=== PATIENT | female | born 1970 | race Caucasian/White ===

== ENCOUNTER 2021-05-14 05:18 | Emergency (ER) | payer BC, SELFPAY ==
--- NOTE | ~2021-05-14 | CT_ITS ---
EXAMINATION: CT abdomen pelvis wo con EXAM DATE: 05/14/2021 07:43 INDICATION: rt flank pain . TECHNIQUE: Spiral CT of the abdomen and pelvis was performed without contrast. Axial, coronal and sag ittal images were reviewed. The dose-length product (DLP) for this examination was 1455.00 mGy-cm. The exposure was tailored according to patient size (auto mA exposure control), and iterative reconst ruction (ASIR) was used as additional dose reduction technique. There is no prior study for comparis on. FINDINGS: There is no nephrolithiasis or hydronephrosis. The uterus is unremarkable. There is a lef t renal fluid density lesion measuring 4 cm, consistent with cyst. Small right renal lesion likely cy st. The bladder is unremarkable. The liver, spleen, adrenal glands and pancreas are unremarkable. T here are cholecystectomy clips. There is no retroperitoneal or pelvic lymphadenopathy. There is mi ld scattered arteriosclerotic disease. The appendix is normal. There is a 4 cm duodenal diverticulum. There is expected amount of colonic stool. No free intraperitoneal gas. The heart is normal in size. There are no pericardial or ple ural effusions. The lung bases are unremarkable. Mild lumbar levoscoliosis. There are no osteoblast ic or osteolytic lesions identified. IMPRESSION: No nephrolithiasis, hydronephrosis or acute intra-abdominal findings. Reviewed, dictated and finalized at location A. INSTALLER IMPRESSION: No nephrolithiasis, hydronephrosis or acute intra-abdominal finding s.
[2021-05-14 05:36] VITALS: BP 173/118; PULSE 95; RESP 18; TEMP 36.6; O2SAT 97
[2021-05-14 07:00] LABS: Basophils Absolute Auto 0.1 K/mm3 (0.0-0.1); Basophils Percent Auto 0.6 % (0.2-1.2); Eosinophils Absolute Auto 0.1 K/mm3 (0-0.3); Eosinophils Percent Auto 1.4 % (0-4.4); Hematocrit 44.6 % (37.0-47.0); Hemoglobin 14.9 g/dL (12.0-15.0); Immature Granulocyte Absolute 0.04 K/mm3 (0.00-0.031); Immature Granulocyte Percent A 0.4 % (0-0.5); Lymphocytes Absolute Auto 1.84 K/mm3 (0.9-3.2); Lymphocytes Percent Auto 19.4 % (18.3-44.2); Mean Corpuscular HGB Conc 33.4 g/dl (32-36); Mean Corpuscular Hemoglobin 29.3 pg (26-34); Mean Corpuscular Volume 87.6 fl (80-100); Mean Platelet Volume 9.2 fl (7.4-10.4); Monocytes Absolute Auto 0.7 K/mm3 (0.1-0.6); Monocytes Percent Auto 7.5 % (2.6-8.5); Neutrophils Absolute Auto 6.7 K/mm3 (1.3-6.7); Neutrophils Percent Auto 70.7 % (45.5-73.1); Platelet Count Result 412 k/mm3 (150-375); Red Blood Count 5.09 M/mm3 (4.2-5.4); Red Cell Distribution Width 12.3 % (11.5-14.5); White Blood Count 9.5 K/mm3 (4.5-10.0)
[2021-05-14 07:13] LABS: Add Urine Microscopic? YES; Appearance Urine Clear (Clear); Bilirubin Urine Negative (Negative); Blood Urine 1+ (Negative); Color Urine Yellow (Yellow); Glucose Urine UA Negative (Negative); Ketones Urine Negative (Negative); Leukocyte Esterase Ur Negative LEU/UL (Negative); Mucus Urine Rare /lpf; Nitrate Urine Negative (Negative); Protein Urine Negative (Negative); Specific Grav Ur 1.014 (1.001-1.035); Squamous Epithelial Cell Urine Many /hpf (Few); Urobilinogen Urine Negative mg/dL (<2.0); WBC Urine 0-3 /hpf
[2021-05-14 07:26] LABS: Alanine Aminotransferase 21 U/L (4-35); Albumin Level 4.4 g/dL (3.5-5.1); Alkaline Phosphatase 69 U/L (38-126); Anion Gap 10 mmol/L (8-16); Aspartate Amino Transferase 29 U/L (14-36); Bilirubin,Total 0.5 mg/dL (0.2-1.3); Blood Urea Nitrogen 14 mg/dL (7-17); Calcium 9.1 mg/dL (8.4-10.2); Carbon Dioxide 21 mmol/L (22-30); Chloride 104 mmol/L (98-107); Estimated CRCL calculation 133 ml/min; Estimated Glomerular Filt Rate > 60; Glucose 132 mg/dL (65-110); Lipase 180 U/L (23-300); Potassium 4.2 mmol/L (3.4-5.0); Sodium 135 mmol/L (137-145)
[2021-05-14 08:00] VITALS: BP 167/97; PULSE 84; RESP 19; O2SAT 99
[2021-05-14] MEDS: MORPHINE SULFATE (*CRX) 4 MG/ML INJ IV PUSH (08:24)
[2021-05-14] MEDS: ONDANSETRON INJ 4 MG/2 ML VIAL IV PUSH (08:24)
--- NOTE | 2021-05-14 09:32 | ED.BACK ---
HPI - Back Pain/Injury General Chief Complaint: Back Pain/Injury Stated Complaint: rt flank pain, covid exposure Time Seen by Provider: 05/14/21 07:05 Source: patient Mode of arrival: ambulatory Limitations: no limitations History of Present Illness HPI Narrative: 50-year-old with a history of hypertension, kidney stones here with complaints of right flank pain radiating into her right lower abdomen started about 2 days ago pain got worse this morning. She denies any shortness of breath or cough. She states that she is exposed to Covid. No history of fever or chills. Denies any urinary symptoms at this time. Patient also states that she has been taking Flomax from her previous admission MD elicited complaint: back pain Pertinent past history: kidney stones Onset (ago): day(s) (2) Timing: intermittent Severity: moderate Quality: aching Location: right flank Radiation: abdomen Exacerbating factors: none Relieving factors: none Associated symptoms: denies other symptoms Related Data Allergies Allergy/AdvReac Type Severity Reaction Status Date / Time NKDA Allergy Unknown Unknown Uncoded 05/14/21 06:14 Review of Systems Review of Systems: All systems reviewed & are unremarkable except as noted in HPI and below Constitutional: Constitutional: Reports no additional constitutional complaints Eyes: Eyes: Reports no additional eye complaints ENT: Reports system reviewed and no additional complaints, except as documented Cardiovascular: Cardiovascular: Reports no additional cardiovascular complaints Respiratory: Respiratory: Reports no additional respiratory complaints Gastrointestinal: Gastrointestinal: Reports as per HPI Musculoskeletal: Musculoskeletal: Reports no additional musculoskeletal complaints Integumentary/Breasts: Skin/Breast: Reports system reviewed and no additional complaints, except as docu Neurologic: Reports system reviewed and no additional complaints, except as documented Psychiatric: Psychiatric: Reports no additional psychiatric complaints Exam Narrative: GENERAL: Well-appearing, well-nourished, and in no acute distress. HEAD: Normocephalic, atraumatic. EYES: PERRLA and EOMI. NECK: Supple. CHEST: Clear to auscultation. No respiratory distress. HEART: Regular rate and rhythm. No murmur heard. Normal peripheral pulses. ABDOMEN: Soft, nontender, nondistended, normal active bowel sounds. EXTREMITIES: Normal range of motion. No edema. SKIN: Warm, dry, no rash. NEURO: No focal deficits. Alert and oriented x3. PSYCH: Normal mood and affect. Course Course Emergency Course: Patient was complaining of right lower abdominal pain I did give her IV morphine and Zofran with some fluids. She presently not having much pain informed her about her lab work, CT finding cause of her pain most likely musculoskeletal. Advised her to continue home medication. Take pain medication as prescribed Vital Signs Vital signs: Vital Signs Temperature 36.6 C 05/14/21 05:36 Pulse Rate 95 05/14/21 05:36 Respiratory Rate 18 05/14/21 05:36 Blood Pressure 173/118 H 05/14/21 05:36 Pulse Oximetry 97 05/14/21 05:36 Temperature 36.6 C 05/14/21 05:36 Pulse Rate 81 05/14/21 09:34 Respiratory Rate 20 05/14/21 09:34 Blood Pressure 136/74 05/14/21 09:34 Pulse Oximetry 97 05/14/21 09:34 MDM - Back Pain/Injury MDM Narrative Medical decision making narrative: With given history of right flank pain radiating into the right lower abdomen suspicious of ureteral stones. Less likely pyelonephritis or appendicitis. Will do routine lab work. Meanwhile give her IV morphine and Zofran. Lab Data Result diagrams: 05/14/21 06:45 05/14/21 06:45 Labs: Lab Results 05/14/21 05/14/21 05/14/21 Range/Units 06:34 06:45 06:45 WBC 9.5 (4.5-10.0) K/mm3 RBC 5.09 (4.2-5.4) M/mm3 Hgb 14.9 (12.0-15.0) g/dL Hct 44.6 (37.0-47.0) % MCV 87.6 (80-100) fl [facility]
[2021-05-14 09:34] VITALS: BP 136/74; PULSE 81; RESP 20; O2SAT 97
== END 2021-05-14 10:10 | disposition home or self-care (01) ==
PROVIDERS: Emergency Medicine; Emergency Provider Family Medicine
DX: R10.31 Right lower quadrant pain (principal); Z87.442 Personal history of urinary calculi
CPT/HCPCS: 36415; 74176; 80053; 81001; 81025; 83690; 85025; 96374; 96375; 99284; J2270; J2405

== ENCOUNTER 2023-10-06 13:50 | Outpatient (CLI) | payer OTHER, SELFPAY ==
--- NOTE | ~2023-10-06 | MM_ITS ---
EXAMINATION: MM screening lance BI w maribel HISTORY: Screening TECHNIQUE: Craniocaudal and mediolateral oblique 3-D tomosynthesis images were obtained and synthetic 2-D images were generated. CAD analysis was submitted and interpreted. COMPARISON: No prior mammogram is available for comparison at this institution. BREAST PARENCHYMAL COMPOSITION: Not dense: There are scattered areas of fibroglandular density. FINDINGS: There is focal asymmetry in the subareolar location the right breast on CC view. No mammogr aphic evidence for malignancy in the left breast. IMPRESSION: 1. Focal right breast asymmetry. 2. Additional mammographic views and possible breast ultrasound are recommended. BI-RADS Category 0: Incomplete: Needs additional imaging evaluation. Reviewed, dictated and finalized at location A. IMPRESSION: 1. Focal right breast asymmetry. 2. Additional mammographic views and possible breast ultrasound are recommended . BI-RADS Category 0: Incomplete: Needs additional imaging evaluation.
== END 2023-10-06 13:51 | disposition home or self-care (01) ==
PROVIDERS: Visit Provider Nurse Practitioner Obstetrics & Gynecology
DX: Z12.31 Encounter for screening mammogram for malignant neoplasm of breast (principal); N64.89 Other specified disorders of breast
CPT/HCPCS: 77063; 77067

== ENCOUNTER 2023-11-03 14:39 | Outpatient (CLI) | payer OTHER, SELFPAY ==
--- NOTE | ~2023-11-03 | CT_ITS ---
EXAMINATION:CT lung screening DATE: 11/03/2023 14:55 INDICATION: Personal history of nicotine dependence. TECHNIQUE: Computed tomography (CT) of the chest was performed without intravenous contrast. Automate d exposure control and iterative reconstruction technique were employed. The dose-length product (DLP ) was 222.00 mGy-cm. COMPARISON: CT abdomen and pelvis 05/14/2021 FINDINGS: There is mild emphysema. There is mild scarring at the lung apices. There is a 4 mm nodule in right upper lobe. No pleural effusion. There is a 3.4 cm nodule in right thyroid lobe. The heart s ize is normal. No pericardial effusion. There are changes of gastric sleeve procedure. There are rm ges of cholecystectomy. Partially visualized is a 2.1 cm cyst in left kidney. There is moderate thora cic spondylosis. IMPRESSION: 1. Lung-RADS category 2: Benign appearance or behavior. Continue annual screening with noncontrast lo w-dose chest CT in 12 months. 2. Right thyroid nodule. Consider thyroid ultrasound for risk stratification. Reviewed, dictated and finalized at location A. IMPRESSION: 1. Lung-RADS category 2: Benign appearance or behavior. Continue annual screeni ng with noncontrast low-dose chest CT in 12 months. 2. Right thyroid nodule. Consider thyroid ultrasound for risk stratification.
== END 2023-11-03 14:40 ==
LOC: MICIMG 14:40
PROVIDERS: PCP Nurse Practitioner; Visit Provider Nurse Practitioner
DX: Z12.2 Encounter for screening for malignant neoplasm of respiratory organs (principal); Z87.891 Personal history of nicotine dependence
CPT/HCPCS: 71271

== ENCOUNTER 2024-12-27 14:56 | Outpatient (CLI) | payer OTHER, SELFPAY ==
--- NOTE | ~2024-12-27 | CT_ITS ---
CT Scan of the Chest without Contrast: Clinical Indication: Lung cancer screening, nicotine dependence Technique: Contiguous sections were acquired throughout the chest without intravenous contrast. Dose reduction technique was used on this scan by utilizing automated exposure control and iterative recon struction technique. The dose-length product (DLP) was 75.00 mGy-cm. COMPARISON: 11/03/2023 Findings: Stable enlarged right thyroid lobe. There is no evidence of any significant mediastinal, hilar or axillary lymphadenopathy. The mediastin al soft tissues appear normal. There is no evidence of pleural or pericardial effusion. Stable 4 mm right upper lobe pulmonary nodule (axial image 52). Images through the upper abdomen reveal no abnormalities. Impression: Lung RADS 2: Benign appearance. 12 month follow-up screening CT advised. Reviewed, dictated and finalized at [facility]. Impression: Lung RADS 2: Benign appearance. 12 month follow-up screening CT advised.
--- NOTE | ~2024-12-27 | MM_ITS ---
EXAMINATION: MM screening lance BI w maribel HISTORY: Screening TECHNIQUE: Craniocaudal and mediolateral oblique 3-D tomosynthesis images were obtained and synthetic 2-D images were generated. CAD analysis was submitted and interpreted. COMPARISON: Comparison to multiple prior studies sequentially, with oldest reviewed study dated 06/06. BREAST PARENCHYMAL COMPOSITION: Dense: The breasts are heterogeneously dense, which may obscure small masses FINDINGS: There is no evidence of suspicious mass, calcification, or architectural distortion to sugg est malignancy in either breast. There has been no suspicious interval change. IMPRESSION: 1. No mammographic evidence of malignancy. 2. Recommend routine screening mammography in one year. BI-RADS Category 1: Negative Reviewed, dictated and finalized at location A.
--- OUTSIDE RECORDS SUMMARY | 2024-12-27 15:00 | XMS_ITS | Encounter Summary ---
Author Organization [facility] Address [address] [place] [id number] Care Team Providers Care Machinist Mate Name Role Phone Kristen Young PUBLIC ADDRESS SYSTEM INSTALLER Primary Care Provider Doreen Faith PUBLIC ADDRESS SYSTEM INSTALLER Primary Care Provider [phone] Encounter Details Date Type Department Care Team (Late st Contact Info) Description 08/13/2022 BeInSync Message Enc [facility] Medical Group Family Medicine [address] [address] Kristen Young NP Telehealth today Social History Tobacco Use Types Packs/Day Years Used Date Smoking Tobacco: Former Cigarettes 1 28 0 05/16/1988 - 05/16/2016 Smokeless Tobacco: Never Alcohol Use Standard Drinks/Week Comments Never 0 (1 standard drink = 0.6 oz pur e alcohol) AUDIT-C Answer Date Recorded Q1: How often do you have a drink containing alc ohol? Never 03/05/2020 Average Number of Drinks Not on file 020 Frequency of Binge Drinking Not on file 02/14 PHQ-2 Answer Date Recorded PHQ-2 Score - If the patient scores above 3, please move on to questions 3-9 0 03/23/2022 Comments No Sex and Gender Information Value Date Recorded Sex Assigned at Female 06/14/2024 12:43 PM EDUCATION REP Legal Sex Female 7:55 PM CDT Gender Identity Female 06/14/2024 12:43 PM EDUCATION REP Sexual Orientation Straight 06/14/2024 12 :43 PM EDUCATION REP COVID-19 Exposure Response Date Recorded In the last 10 days, have yo u been in contact with someone who was confirmed or suspected to have Coronavirus/COVID-19? No / Unsure 07/16/2022 5:24 AM EDUCATION REP documented as of this encounter Plan of Treatment Upcoming Encounters Date Type Department Care Team (Late st Contact Info) Description 01/18/2025 9:40 AM CDT Office Visit [facility] Medical Group Multispecialty Care - [place] [address] [place] [address] Doreen Chapman, PUBLIC ADDRESS SYSTEM INSTALLER [address] [place] [address] documented as of this encounter Visit Diagnoses Not on filedocumented in this encounter Additional Health Concerns Assessment Noted Time PHQ-9 Depression Total Score: 0 03/23/20 8:00 AM EDUCATION REP documented as of this encounter Care Teams Machinist Mate Relationship Specialty Start Date End Date Kristen Young, PUBLIC ADDRESS SYSTEM INSTALLER PCP - General NURSE PRACTITIONER 03/18/22 10/12/23 Doreen Chapman, PUBLIC ADDRESS SYSTEM INSTALLER [address] [place] [address] PCP - General NURSE PRACTITIONER 10/13/23 documented as of this encounter
--- OUTSIDE RECORDS SUMMARY | 2024-12-27 15:00 | XMS_ITS | Encounter Summary ---
Author Organization [facility] Address [address] [place] [address] Care Team Providers Care Freight Flagman Name Role Phone Kristen Young RESEARCH CONSULTANT Primary Care Provider Doreen Faith RESEARCH CONSULTANT Primary Care Provider [phone] Encounter Details Date Type Department Care Team (Late st Contact Info) Description 09/30/2022 RazorGator Message Enc [facility] Medical Group Family Medicine [address] [address] [facility] Provider Dermatology Referral Social History Tobacco Use Types Packs/Day Years [...] Sex Assigned at Female 06/14/2024 12:43 PM ROUGHER OPERATOR Legal Sex Female 7:55 PM CDT Gender Identity Female 06/14/2024 12:43 PM ROUGHER OPERATOR Sexual Orientation Straight 06/14/2024 12 :43 PM ROUGHER OPERATOR documented as of this encounter Progress Notes * Liam Del Valle MA - 10/05/2022 3:18 PM CDT Referrals were entered today and sent to Kristen for signing. documented in this encounter Plan of Treatment Upcoming Encounters Date Type Department Care Team (Late st Contact Info) Description 01/18/2025 9:40 AM CDT Office Visit [facility] Medical Group Multispecialty Care - [place] [address] [place] [address] Doreen Chapman, ARIELLE [address] [place] [address] documented as of this encounter Visit Diagnoses Not on filedocumented in this encounter Additional Health Concerns Assessment Noted Time PHQ-9 Depression Total Score: 0 03/23/20 22 8:00 AM ROUGHER OPERATOR documented as of this encounter Care Teams Freight Flagman Relationship Specialty Start Date End Date Kristen Young RESEARCH CONSULTANT PCP - General NURSE PRACTITIONER 03/18/22 10/12/23 Doreen Chapman NP [address] [place] [address] PCP - General NURSE PRACTITIONER 10/13/23 documented as of this encounter
--- OUTSIDE RECORDS SUMMARY | 2024-12-27 15:00 | XMS_ITS | Encounter Summary ---
Author Organization [facility] Address [address] [place] [address] Care Team Providers Care Drug Abuse Social Worker Name Role Phone Kristen Young METAL BUILDINGS ASSEMBLER Primary Care Provider Doreen Faith METAL BUILDINGS ASSEMBLER Primary Care Provider [phone] Reason for Referral * Consultation/Treatment (Routine) - Closed Specialty Diagnoses / Procedures Referred By Gerald medina Referred To Contact GENERAL SURGERY Diagnoses Obesity Encounter for diagnostic endoscopy Procedures OFFICE/OUTPT VISIT,NEW,LEVL III OFFICE/OUTPT VISIT,NEW,LEVL IV OFFICE/OUTPT VISIT,NEW,LEVL V OFFICE/OUTPT VISIT,EST,LEVL III OFFICE/OUTPT VISIT,EST,LEVL IV OFFICE/OUTPT VISIT,EST,LEVL V Kristen Young NP Referral ID Status Reason Start Date Expiration Date Visits Re quested Visits Authorized [id number] Closed 06/18/2022 06/18/2023 4 4 Scheduling Instructions Please then send to Dr Anderson office. [facility] [address] [place] [address] Pt is having an endoscopy on 06/28/2022 ATING SYSTEM DESIGNER * Surgical (Routine) - Closed Specialty Diagnoses / Procedures Referred By Gerald medina Referred To Contact Bariatrics Diagnoses Obesity Procedures OFFICE/OUTPT VISIT,NEW,LEVL III OFFICE/OUTPT VISIT,NEW,LEVL IV OFFICE/OUTPT VISIT,NEW,LEVL V OFFICE/OUTPT VISIT,EST,LEVL III OFFICE/OUTPT VISIT,EST,LEVL IV OFFICE/OUTPT VISIT,EST,LEVL V Kristen Young NP Referral ID Status Reason Start Date Expiration Date V isits Requested Visits Authorized [id number] Closed Specialty Services 05/29/2022 11/25/2022 4 4 Scheduling Instructions I am requesting a referral to: Vinh Anderson [facility] [address] [place] [phone] to discuss bariatric surgery ATING SYSTEM DESIGNER Reason for Visit * Reason Onset Date Comments Referral 05/26/2022 Encounter Details Date Type Department Care Team (Late st Contact Info) Description 05/26/2022 Toobla Message Enc [facility] Medical Group Family Medicine - [address] [address] Kristen Young NP referral to bariatric doctor for appointment on 06.03.22 Social History Tobacco Use Types Packs/Day Years Used Date Smoking Tobacco: Former Cigarettes Q uit: 05/16/2016 Smokeless Tobacco: Never Alcohol Use Standard [...] Sex Assigned at Female 06/14/2024 12:43 PM OPERATING SYSTEM DESIGNER Legal Sex Female 7:55 PM CDT Gender Identity Female 06/14/2024 12:43 PM OPERATING SYSTEM DESIGNER Sexual Orientation Straight 06/14/2024 12 :43 PM OPERATING SYSTEM DESIGNER documented as of this encounter Progress Notes * Kristen Young NP - 06/07/2022 8:56 AM CST Yes please ATING SYSTEM DESIGNER * David Ritter RN - 06/07/2022 7:45 AM CST Okay for referral? Thanks ATING SYSTEM DESIGNER * Liam Del Valle MA - 05/27/2022 1:50 PM CST Referral for bariatric surgery referral entered. ATING SYSTEM DESIGNER documented in this encounter Plan of Treatment Upcoming Encounters Date Type Department Care Team (Late st Contact Info) Description 01/18/2025 9:40 AM CDT Office Visit [facility] Medical Group Multispecialty Care - [place] [address] [place], [place] [id number] Doreen Chapman NP [address] [place], [place] [id number] Scheduled Referrals Name Type Priority Associated Diagnoses Orde r Schedule Ambulatory Referral to Bariatric Surgery Referral Routine Obesity Ordered: 05/27/2022 Ambulatory referral to General Surgery (OTHER) Referral Routine Obesity Encounter for diagnostic endoscopy Ordered: 06/07/2022 documented as of this encounter Visit Diagnoses Diagnosis Obesity- Primary Obesity, unspecified Class 2 obesity due to excess calories without serious comorbidity with body mass index (BMI) of 39.0 to 39.9 in adult Encounter for diagnostic endoscopy Other specified pre-operative examination documented in this encounter Additional Health Concerns Assessment Noted Time PHQ-9 Depression Total Score: 0 03/23/20 8:00 AM OPERATING SYSTEM DESIGNER documented as of this encounter Care Teams Drug Abuse Social Worker Relationship Specialty Start Date End Date Kristen Young NP PCP - General NURSE PRACTITIONER 03/18/22 10/12/23 Doreen Chapman NP [address] [place], [place] [id number] PCP - General NURSE PRACTITIONER 10/13/23 documented as of this encounter
--- OUTSIDE RECORDS SUMMARY | 2024-12-27 15:00 | XMS_ITS | Clinical Summary ---
Author Organization [facility] Address [address] [place] [address] Care Team Providers Care Riveting Machine Operator Tape Control Name Role Phone AdelaDoreen WHEEL ROLLER Primary Care Provider Allergies No known active allergies Medications sotalol (BETAPACE) 80 MG tablet Take 1 tablet (80 mg total) by mouth 2 (two) times daily. Active Multiple Vitamins-Minerals (BARIATRIC MULTIVITAMINS/IRO N OR) Active calcium carbonate 1250 (500 Ca) MG chewable tablet Chew 1 tablet (1,250 mg total) by mouth daily. Active ondansetron (ZOFRAN-ODT) 4 MG disintegrating tabletIndications :Nausea Take 1 tablet (4 mg total) by mouth every 6 (six) hours as needed for Nausea. 30 tablet 2 025 Active pantoprazole EC (PROTONIX) 40 MG tabletIndications :Gastro-esophagea l reflux disease without esophagitis Take 1 tablet (40 mg total) by mouth daily. 30 tablet 025 Active amLODIPine (NORVASC) 10 MG tabletIndications :Essential hypertension Take 1 tablet (10 mg total) by mouth daily. 90 tablet 3 025 Active docusate sodium (COLACE) 100 MG capsuleIndication s:Other hemorrhoids,Other constipation Take 1 capsule (100 mg total) by mouth 2 (two) times daily. For constipation 025 Active ELIQUIS 5 MG tabletIndications :Chronic atrial fibrillation (CMS/HCC HHS/HCC) Take 1 tablet (5 mg total) by mouth 2 (two) times daily. 60 tablet 1 Active tirzepatide (ZEPBOUND) 12.5 MG/0.5ML injectionIndicati ons:Weight Loss Inject 12.5 mg into the skin once a week. Indications: Weight Loss 2 mL 2 025 Active tirzepatide (ZEPBOUND) 10 MG/0.5ML injectionIndicati ons:Weight Loss Inject 10 mg into the skin once a week. Indications: Weight Loss 2 mL 2 025 2024 Discontinued Active Problems Problem Noted Date Diagnosed Date Right thyroid nodule 01/12/2024 Other hemorrhoids 10/14/2023 Chronic atrial fibrillation ([facility]) ADHD (attention deficit hype ractivity disorder), combined type 07/14/2022 Abnormal EKG 07/09/2022 Gastro-esophageal reflux disease without esophag itis 07/09/2022 Personal history of nicotine dependence 07/09/19 23 Vitamin D deficiency 07/09/2022 Class 1 obesity without seri ous comorbidity with body mass index (BMI) of 32.0 to 32.9 in adult, unspecified obesity type 07/09/2022 Abnormal results of thyroid function studies 12/2022 Prediabetes 06/23/2022 Anxiety 06/05/2020 Essential hypertension 04/03/2020 Resolved Problems Problem Noted Date Diagnosed Date Resolved Date Encounter for screening for cardiovascular disorders 07/09/2022 07/19/2022 Other forms of dyspnea 06/23/202210/13 Encounters Date Type Department Care Team Description 12/07/2024 Telephone [facility] [place] [address] [facility] [address] [place] [address] Doreen Chapman, WHEEL ROLLER Referral 12/06/2024 [facility] [place] [address] [place] [address] Doreen Chapman NP Zep increase 11/21/2024 MyChart Message [facility] Multispecialty [place] [address] [address] [facility] [address] [place] [address] Doreen Chapman, WHEEL ROLLER Bumps 11/02/2024 Results Follow-Up [place] [address] [address] [facility] [address] [place] [address] Doreen Chapman, WHEEL ROLLER COLOGUARD (EXACT SCIENCE) 10/22/2024 Orders Only [place] [address] [address] [place] [address] Doreen Chapman, WHEEL ROLLER 10/15/2024 Telephone [place] [address] [address] [place] [address] Doreen Chapman, WHEEL ROLLER Record Request 10/12/2024 8:20 AM CDT Office Visit [place] [address] [address] [place] [address] Doreen Chapman, WHEEL ROLLER Weight Check 10/12/2024 MyChart Message Enc [place] [address] [address] [address] [address] [place] [address] Doreen Chapman, WHEEL ROLLER Hormone Testing 10/12/2024 Travel 09/28/2024 Scan [facility] Scanned, [facility] (SCAN) from Last 3 Months Immunizations Immunization Administration Dates Next Due Fluarix 03/16/2019 Fluzone 6 Months+ Quad (0.5 mL Prefilled Syringe) 04/03/2020 Influenza Adult (Generic) 02/12/2022,03/20/2021, 03/16/2019 MODERNA COVID-19 (12+) MRNA, LNP-S, PF, 100 MCG/ 0.5 ML DOSE 05/14/2020 Shingrix 10/12/2024,08/11/2024 Tdap (Adacel) 10/14/2023 Tdap (Generic) 08/11/2024 Family History Medical History Relation Comments Diabetes Brother 1 Heart Disease Brother 1 pacemaker Hypertension Brother 1 CHF Father COPD Father Cancer Father Hairy cell [facility] Heart Disease Father Cancer Mother Mantle cell lymp [place] Relation Status Comments Brother 1 Alive Brother 2 Alive Brother 3 Alive Daughter Alive Father Mother Son Alive Social History Tobacco Use Types Packs/Day Years Used Date Smoking Tobacco: Former Cigarettes 1 28 0 05/16/1988 - 05/16/2016 Smokeless Tobacco: Never Tobacco Cessation:Counseling Given: No Alcohol Use Standard Drinks/Week Comments Not Currently 1.7 (1 standard drink = 0.6 oz p ure alcohol) AUDIT-C Answer Date Recorded Q1: How [...] Sex Assigned at Female 06/14/2024 12:43 PM SOCIAL MEDIA SR STRATEGY MANAGER Legal Sex Female 7:55 PM CDT Gender Identity Female 06/14/2024 12:43 PM SOCIAL MEDIA SR STRATEGY MANAGER Sexual Orientation Straight 06/14/2024 12 :43 PM SOCIAL MEDIA SR STRATEGY MANAGER Last Filed Vital Signs Vital Sign Reading Time Taken Comments Blood Pressure 138/84 10/12/2024 8:21 AM CDT Pulse 82 10/12/2024 8:21 AM CDT Temperature 36.7 C (98.1 F) 10/12/2024 8:21 AM CDT Respiratory Rate 18 10/12/2024 8:21 AM CDT Oxygen Saturation 98% 10/12/2024 8:21 AM CDT Inhaled Oxygen Concentration - - Weight 104.9 kg (231 lb 3.2 oz) 10/12/2024 8:21 AM CDT Height 175.3 cm (5' 9) 10/12/2024 8:21 AM CDT Body Mass Index 34.14 10/12/2024 8:21 AM CDT Plan of Treatment Upcoming Encounters Date Type Department Care Team (Late st Contact Info) Description 01/18/2025 9:40 AM CDT Office Visit [facility] Multis[facility]ialty Care - [address] [place] [address] Doreen Chapman, WHEEL ROLLER [address] [facility] [address] [place] [address] Health Maintenance Due Date Last Done Comments Hepatitis B Vaccines (1 of 3 - 19+ 3-dose series) 1989 Lung Cancer Screening 2020 Pneumococcal Vaccine: 50+ Years (1 of 1 - PCV) 2020 COVID-19 Vaccine ( - season) 2024 02/12/2022, 03/20/2021, 06/12/2020, Additional history exists PHQ-2 (Physician [place]) 05/16/2024 Annual Physical 10/13/2024 10/14/2023, 09/08/2021 Mammogram Screening 10/05/2025 10/06/2023, 03/10/2020, 03/10/2020, Additional history exists Cervical Cancer Screening Pap Smear (Age 30 to 64) Every 3 Years 09/15/2026 09/16/2023, 09/17/2021, 09/20/2017 Colorectal Cancer Screening FIT-DNA (3 Years) 10/30/2027 10/29/2024 Cervical Cancer Screening Pap with HPV Testing (Age 30 to 64) Every 5 Years 09/15/2028 09/16/2023, 09/18/2021 Cervical Cancer Screening with HPV 09/15/2028 DTaP, Tdap and Td Vaccines (3 - Td or Tdap) 08/11/2034 08/11/2024, 10/14/2023 Hepatitis C Completed 10/14/2023 Zoster Vaccines Completed 10/12/2024, 08/11/2024 Meningococcal B Vaccine Aged Out No l onger eligible based on patient's age to complete this topic Meningococcal Vaccine Aged Out No shaylee kervin eligible based on patient's age to complete this topic RSV Immunizations Under 20 Months Aged Out No longer eligible based on patient's age to complete this topic Medical Devices Implanted Type Area Price Clerk Device Identifier Shelf Expiration Date Model / Serial / Lot 2.0 X 12 Snap Off Screw Implanted:Qty: 1 on 07/16/2022 by Candelario Sosa DPM at [facility] Right: [employer] [id number] / / Med Phalinx Implant Implanted:Qty: 1 on 07/16/2022 by Candelario Sosa DPM at [facility] Right: Ruth [employer] [id number] / / 1.1 Mm Kwire Implanted:Qty: 1 on 07/16/2022 by Candelario Sosa DPM at [facility] Right: Ruth [employer] [id number] / / Procedures Procedure Name Priority Date/Time Associated Diagnosis Comments COLOGUARD (EXACT SCIENCE) Routine 10/29/2024 8:16 AM CDT Screening for colon cancer OUTSIDE LAB (SCAN ORDER) 09/28/2024 HEPATITIS C ANTIBODY Routine 10/14/2023 9:46 AM CDT Need for hepatitis C screening test MAMMOGRAM GENERIC (SCAN ORDER) 10/06/2023 OUTSIDE CYTOPATH CERV/VAG INTERPRET (PAP) 09/16/2023 OUTSIDE CYTOPATH CERV/VAG INTERPRET (PAP) (SCAN ORDER) 09/20/2017 from Last 3 Months or Most Recently Relevant to Health Maintenance Results * COLOGUARD (EXACT SCIENCE) (10/29/2024 8:16 AM CDT) COLOGUARD RESULT Negative Negative [employer] (CLIA #:[id number]) Comment: The Cologuard (TM) test was performed on this specimen. NEGATIVE TEST RESULT. A negative Cologuard result indicates a low likelihood that a colorectal cancer (CRC) or advanced adenoma (adenomatous polyps with more advanced pre-malignant features) is present. The chance that a person with a negative Cologuard test has a colorectal cancer is less than 1 in 1500 (negative predictive value >99.9%) or has an advanced adenoma is less than 5.3% (negative predictive value 94.7%). These data are based on a prospective cross-sectional study of 10,000 individuals at average risk for colorectal cancer who were screened with both Cologuard and colonoscopy. (Gogo Uribe al, N Engl J Med 2014;370(14):1286- 1297) The normal value (reference range) for this assay is negative. COLOGUARD RE-SCREENING RECOMMENDATION: Periodic colorectal cancer screening is an important part of preventive healthcare for asymptomatic individuals at average risk for colorectal cancer. Following a negative Cologuard result, the [place] Cancer Society and U.S. Multi-Society Task Force screening guidelines recommend a Cologuard re-screening interval of 3 years. References: [place] [employer] Guideline for Colorectal Cancer Screening: https://www.cancer.org/cancer/cbvso-zakliv-zhhewi/kdwafxwnh-iwmgaydqq-utvfsgn/ac s-rec ommendations.html.; Brayan DK, Magalis CR, Mio JeffK, Colorectal Cancer Screening: Recommendations for Physicians and Patients from the U.S. Multi-Society Task Force on Colorectal Cancer Screening , Am J Gastroenterology 2017; 112:1086-8199. TEST DESCRIPTION: Composite algorithmic analysis of stool DNA-biomarkers with hemoglobin immunoassay. Quantitative values of individual biomarkers are not reportable and are not associated with individual biomarker result reference ranges. Cologuard is intended for colorectal cancer screening of adults of either sex, 45 years or older, who are at average-risk for colorectal cancer (CRC). Cologuard has been approved for use by the U.S. FDA. The performance of Cologuard was established in a cross sectional study of average-risk adults aged 50-84. Cologuard performance in patients ages 45 to 49 years was estimated by sub-group analysis of near-age groups. Colonoscopies performed for a positive result may find as the most clinically significant lesion: colorectal cancer [4.0%], advanced adenoma (including sessile serrated polyps greater than or equal to 1cm diameter) [20%] or non- advanced adenoma [31%]; or no colorectal neoplasia [45%]. These estimates are derived from a prospective cross-sectional screening study of 10,000 individuals at average risk for colorectal cancer who were screened with both Cologuard and colonoscopy. (Gogo Uribe al, N Engl J Med 2014;370(14):9414-3800.) Cologuard may produce a false negative or false positive result (no colorectal cancer or precancerous polyp present at colonoscopy follow up). A negative Cologuard test result does not guarantee the absence of CRC or advanced adenoma (pre-cancer). The current Cologuard screening interval is every 3 years. ([place] [employer] Society and U.S. Multi-Society Task Force). Cologuard performance data in a 10,000 patient pivotal study using colonoscopy as the reference method can be accessed at the following location: www.Spockly.eCareer/results. Additional description of the Cologuard test process, warnings and precautions can be found at www.colMagpowerrd.com. STOOL STOOL SPECIMEN / Unknown 10/29/2024 8:16 AM CDT 10/30/2024 9:44 AM CDT us Doreen Chapman NP BODY FLUIDS AND STOOLS ORDE RABLES Final Result Performing Organization Address [facility] Co de Phone Number [employer] [address] [place] [address], [employer] (CLIA #:[id number]) [address] [place] [address] * OUTSIDE LAB (SCAN ORDER) (09/28/2024) 09/28/2024 us [facility] Scanned SCANNING Final Resu lt * HEPATITIS C ANTIBODY (10/14/2023 9:46 AM CDT) HEPATITIS C AB NON-REACTI VE NON-REACT EDWIN 10/14/2023 7:40 PM CDT [facility] Comment: ANTIBODIES TO HCV NOT DETECTED. DOES NOT EXCLUDE THE POSSIBILITY OF EXPOSURE TO HCV. 10/14/2023 9:46 AM CDT us Doreen Chapman NP LABORATORY Final Resul t Performing Organization Address [facility] Co de Phone Number [facility] [address] [place] [address], [id number] * MAMMOGRAM GENERIC (SCAN ORDER) (10/06/2023) Anatomical Region Laterality Modality Other 10/06/2023 us [facility] Scanned SCANNING Final Resu lt * PAP SMEAR WITH HPV (09/16/2023) 09/16/2023 us [facility] Scanned SCANNING Final Resu lt * OUTSIDE CYTOPATH CERV/VAG INTERPRET (PAP) (09/20/2017) 09/20/2017 Narrative 09/20/2017 Ordered by an unspecified provider. us Documents Scanned SCANNING Final Result from Last 3 Months or Most Recently Relevant to Health Maintenance Insurance Advance Directives * Full Code (Latest Code Status on File) Date Activated Date Inactivated Comments 07/16/2022 11:12 AM 07/16/2022 1:28 PM Care Teams Riveting Machine Operator Tape Control Relationship Specialty Start Date End Date Doreen Chapman, WHEEL ROLLER [address] [facility] [address] [place] [address] PCP - General NURSE PRACTITIONER 10/13/23
--- OUTSIDE RECORDS SUMMARY | 2024-12-27 15:00 | XMS_ITS | Encounter Summary ---
Author Organization [facility] Address [address] [place] [id number] Care Team Providers Care Wrister Name Role Phone Kristen Young SENIOR CLINICAL DATA ANALYST Primary Care Provider Doreen Fiath SENIOR CLINICAL DATA ANALYST Primary Care Provider [phone] Encounter Details Date Type Department Care Team (Late st Contact Info) Description 06/24/2022 [place] [facility] Message Enc [facility] [address] [address] Kristen Young NP Bariatric Sleeve - Release for surgery Social History Tobacco Use Types Packs/Day Years [...] Sex Assigned at Female 06/14/2024 12:43 PM SAMPLE GRADER Legal Sex Female 7:55 PM CDT Gender Identity Female 06/14/2024 12:43 PM SAMPLE GRADER Sexual Orientation Straight 06/14/2024 12 :43 PM SAMPLE GRADER COVID-19 Exposure Response Date Recorded In the last 10 days, have yonatan u been in contact with someone who was confirmed or suspected to have Coronavirus/COVID-19? No / Unsure 06/04/2022 11:37 AM SAMPLE GRADER documented as of this encounter Progress Notes * David Ritter RN - 06/28/2022 8:19 AM CST FYI LE GRADER * David Ritter RN - 06/24/2022 7:58 AM CST Please see note. Thanks LE GRADER documented in this encounter Plan of Treatment Upcoming Encounters Date Type Department Care Team (Late st Contact Info) Description 01/18/2025 9:40 AM CDT Office Visit [facility] Multispecialty Care - [place] [address] [place], [place] [id number] Doreen Chapman NP [address] [place] [address] documented as of this encounter Visit Diagnoses Not on filedocumented in this encounter Additional Health Concerns Assessment Noted Time PHQ-9 Depression Total Score: 0 03/23/20 22 8:00 AM SAMPLE GRADER documented as of this encounter Care Teams Wrister Relationship Specialty Start Date End Date Kristen Young NP PCP - General NURSE PRACTITIONER 03/18/22 10/12/23 Doreen Chapman NP [address] [place], [place] [id number] PCP - General NURSE PRACTITIONER 10/13/23 documented as of this encounter
--- OUTSIDE RECORDS SUMMARY | 2024-12-27 15:00 | XMS_ITS | Clinical Summary ---
Author Organization [facility] Address [address] [place] [address] Care Team Providers Care Dinking Machine Operator Name Role Phone Prieto Salomon MD Unavailable [phone] Kristen Young NP Unavailable [phone] Doreen Chapman NP Primary Care Provider [phone] Allergies No known active allergies Medications amLODIPine (NORVASC) 10 mg tablet Take 1 tablet (10 mg total) by mouth daily 3 Active ondansetron ODT (ZOFRAN-ODT) 4 mg disintegrating tablet Take 1 tablet (4 mg total) by mouth as needed [address] (PROTONIX) 40 mg EC tablet Take 1 tablet (40 mg total) by mouth daily 3 Active tirzepatide, weight loss, (ZEPBOUND) 7.5 mg/0.5 mL pen injector 5 Active sotaloL (BETAPACE) 80 mg tablet Take 1 tablet (80 mg total) by mouth 2 (two) times a day Active docusate sodium (DOK) 100 mg tabletIndications: constipation Take 1 tablet (100 mg total) by mouth 2 (two) times a day Active multivitamin tabletIndications: Vitamin Deficiency Prevention Take 1 tablet by mouth Active magnesium oxide (MAG-OX) 400 mg (241.3 mg elemental magnesium) tabletIndications: hypomagnesemia Take 1 tablet (400 mg total) by mouth daily Active Eliquis 5 mg tablet Take 1 tablet (5 mg total) by mouth 2 (two) times a day 180 tablet 2 Active Eliquis 5 mg tablet Take 1 tablet (5 mg total) by mouth 2 (two) times a day 3 12/05/19 Discontinu ed(Reorder ) Eliquis 5 mg tablet Take 1 tablet (5 mg total) by mouth 2 (two) times a day 60 tablet 3 5 12/08/19 Discontinu ed(Reorder ) Active Problems Problem Noted Date Diagnosed Date Paroxysmal atrial fibrillation 11/01/2024 Subclinical hyperthyroidism 09/14/2024 Multinodular goiter 09/14/2024 Resolved Problems Problem Noted Date Diagnosed Date Resolved Date A-fib 09/06/2022 11/01/2024 Encounters Date Type Department Care Team Description 12/12/2024 Results Follow-Up [facility] [address] [address] Lona Silva PA T3, free, T4, free, TSH 11/01/2024 11:30 AM CDT Office Visit [facility] Cardiology at [address] [phone] Ralph Vidales MD Paroxysmal atrial fibrillation (HCC) (Primary Dx); Chronic atrial fibrillation (HCC) 10/26/2024 Telephone [facility] [address] [address] Diana Schultz MD 10/18/2024 8:00 AM CDT - 10/18/2024 11:59 PM CDT Hospital Encounter [facility] Nuclear Medicine [address] [place] [address] Discharge Disposition: Discharge to home or self care 10/18/2024 8:00 AM CDT - 10/18/2024 11:59 PM CDT Hospital Encounter [facility] Medicine [address] [place] [address] Discharge Disposition: Discharge to home or self care 10/18/2024 7:59 AM CDT - 10/18/2024 11:59 PM CDT Hospital Encounter [facility] Nuclear Medicine [address] [place] [id number] Subclinical hyperthyroidism; Multinodular goiter Discharge Disposition: Discharge to home or self care 10/18/2024 7:20 AM CDT - 10/18/2024 11:59 PM CDT Hospital Encounter [address] [address] Multinodular goiter Discharge Disposition: Discharge to home or self care from Last 3 Months Surgical History Surgery Date Site/Laterality Comments CARDIOVERSION 09/17/2022 Transesophageal cardiogram with cardioversion GASTRIC RESTRICTION SURGERY 07/14/2022 - 08/13/2022 gastric sleeve CORRECTION HAMMER TOE 07/14/2022 - 08/13/2022 Medical History Medical History Date Comments GERD (gastroesophageal reflux disease) Hypertension Atrial fibrillation (HCC) Obesity Family History Medical History Relation Name Comments COPD Father Heart failure Father Fibroids Mother Relation Name Status Comments Father Mother Social History Tobacco Use Types Packs/Day Years Used Date Smoking Tobacco: Former Cigarettes Smokeless Tobacco: Never Tobacco Cessation:Counseling Given: Not Answered AUDIT-C Answer Date Recorded Q1: How often do you have a drink containing alc ohol? Monthly or less 09/17/2022 Q2: How many drinks containi ng alcohol do you have on a typical day when you are drinking? 1 or 2 09/17/2022 Q3: How often do you have si x or more drinks on one occasion? Never 09/17/2022 Personal Safety Answer Date Recorded Have you ever been in or are you currently in a harmful physical or emotional relationship or is someone making you feel afraid or unsafe? Denies 09/17/2022 Comments No Sex and Gender Information Value Date Recorded Sex Assigned at Not on file Legal Sex Female 5:46 PM INSURANCE VERIFY REP Gender Identity Not on file Sexual Orientation Not on file Obstetrics History Last Filed Vital Signs Vital Sign Reading Time Taken Comments Blood Pressure 138/88 11/01/2024 11:33 AM CDT Pulse 80 11/01/2024 11:33 AM CDT Temperature 36.4 C (97.6 F) 02/25/2020 3:23 PM CDT Respiratory Rate 16 09/14/2024 9:13 AM CDT Oxygen Saturation 99% 11/01/2024 11:33 AM CDT Inhaled Oxygen Concentration - - Weight 95.7 kg (211 lb) 11/01/2024 11:33 AM CDT Height 172.7 cm (5' 8) 11/01/2024 11:33 AM CDT Body Mass Index 32.08 11/01/2024 11:33 AM CDT Plan of Treatment Health Maintenance Due Date Last Done Comments Cervical Cancer Screening 1970 Colon Cancer Screening-Colonoscopy 1970 Depression Screening 1970 Hepatitis C Screening 1970 Hepatitis B Screening 1988 Regular Well Visit/Exam 18-64 1988 Pneumococcal vaccine <65 (1 of 2 - PCV) 1989 Breast Cancer Screening-Mammogram 06/06/2020 020, 09/28/2017 Covid-19 Vaccine (2023-2 5 season) 2024 03/20/2021, 06/12/2020, 05/14/2020 Influenza Vaccine (#1) 2025 2, 03/20/2021, 04/03/2020, Additional history exists DTaP/Tdap/Td Vaccine (3 - Td or Tdap) 08/11/2034 08/11/2024, 10/14/2023 Zoster Vaccine Completed 10/12/2024, 08/11/2024 Procedures Procedure Name Priority Date/Time Associated Diagnosis Comments TSH Routine 12/10/2024 7:18 AM CDT Subclinical hyperthyroidism T4, FREE Routine 12/10/2024 7:18 AM CDT Subclinical hyperthyroidism T3, FREE Routine 12/10/2024 7:18 AM CDT Subclinical hyperthyroidism ELECTROCARDIOGRAM REPORT Routine 11/01/2024 3:13 PM CDT Paroxysmal atrial fibrillation (HCC) POCT LIPID PANEL Routine 11/01/2024 11:25 AM CDT Chronic atrial fibrillation (HCC) NM THYROID IMAGING WITH UPTAKE(S) Schedule Routine, Read Routine (OP Routine) 10/18/2024 2:27 PM CDT Subclinical hyperthyroidism Multinodular goiter US THYROID Schedule Routine, Read Routine (OP Routine) 10/18/2024 8:09 AM CDT Multinodular goiter SCREENING MAMMOGRAM BILATERAL W TAE Routine 09/28/2017 7:27 AM CDT from Last 3 Months or Most Recently Relevant to Health Maintenance Results * T3, free (12/10/2024 7:18 AM CDT) Free T3 3.7 2.3 - 4.2 pg/mL [facility] Blood 12/10/2024 7:18 AM CDT 12/10/2024 7:18 AM CDT Diana Riggins MD LAB BLOOD ORDERABLE S Final Result Performing Organization Address [facility] Co de Phone Number [facility] [address] [place] [address] * (ABNORMAL) TSH (12/10/2024 7:18 AM CDT) TSH 0.15(L) mIU/L [facility] Comment: Reference Range > or = 20 Years 0.40-4.50 Ranges First trimester 0.26-2.66 Second trimester 0.55-2.73 Third trimester 0.43-2.91 Blood 12/10/2024 7:18 AM CDT 12/10/2024 7:18 AM CDT Diana Riggins MD LAB BLOOD ORDERABLE S Final Result Performing Organization Address [facility]/ZIP Co de Phone Number [facility] [address] [place] [address] * T4, free (12/10/2024 7:18 AM CDT) Free T4 1.0 0.8 - 1.8 ng/dL [facility] Blood 12/10/2024 7:18 AM CDT 12/10/2024 7:18 AM CDT Diana Riggins MD LAB BLOOD ORDERABLE S Final Result [facility] [address] [phone] * Electrocardiogram Report (11/01/2024 3:13 PM CDT) Ralph Vidales MD ECG ORDERABLES Final Re sult * POCT lipid panel (11/01/2024 11:25 AM CDT) Cholesterol, POC 159 <200 MG/DL HDL, POC 43 >=40 mg/dL Triglycerides, POC 101 <=149 mg/dL LDL Cholesterol POC 96 <=129 mg/dL Chol/HDL Ratio, POC 3.7 NONE Non-HDL Cholesterol, POC 117 NONE mg/dL Cholesterol Total, POC 159 30 - 199 mg/dL Capillary blood 11/01/2024 1 1:25 AM CDT Ralph Vidales MD POINT OF CARE TEST ORDER YIN Final Result * NM Thyroid Imaging with Uptakes (10/18/2024 2:27 PM CDT) Anatomical Region Laterality Modality N/A Nuclear Medicine 10/18/2024 3:54 PM CDT Narrative 10/18/2024 4:07 PM CDT EXAM DESCRIPTION: NM THYROID IMAGING WITH UPTAKE(S) RADIOPHARMACEUTICAL: 511 uCi I-123 (sodium iodide) p.o. REASON FOR STUDY: Subclincial hyperthyroidism and thyroid nodules. TECHNIQUE: Delayed multiplanar scintigrams were obtained. STARTED DATE: 10/18/2024 COMPARISON: Thyroid ultrasound 10/18/2024 FINDINGS: There is a large area of severely diminished radiotracer accumulation within the right upper and mid thyroid. Small amount of activity in the lower pole. The left thyroid is relatively homogeneous. The 6-hour radioactive iodine uptake is 28% (normal range 4-19%). IMPRESSION: 1. Elevated 6 hour uptake of 28%. 2. Relatively diminished perfusion in the right upper and mid thyroid likely corresponding to the 5.6 cm nodule on the ultrasound. Consider biopsy as clinically warranted. THIS IS AN ELECTRONICALLY VERIFIED FINAL REPORT 10/18/2024 4:07 PM - Electronically signed by Torito Fuller M.D. LB T: Report ID: [id number] Reading Location: [id number] Procedure Note Torito Fuller MD - 10/18/2024 EXAM DESCRIPTION: NM THYROID IMAGING WITH UPTAKE(S) RADIOPHARMACEUTICAL: 511 uCi I-123 (sodium iodide) p.o. REASON FOR STUDY: Subclincial hyperthyroidism and thyroid nodules. TECHNIQUE: Delayed multiplanar scintigrams were obtained. STARTED DATE: 10/18/2024 COMPARISON: Thyroid ultrasound 10/18/2024 FINDINGS: There is a large area of severely diminished radiotracer accumulation within the right upper and mid thyroid. Small amount ofactivity in the lower pole. The left thyroid is relatively homogeneous. The6-hour radioactive iodine uptake is 28% (normal range 4-19%). IMPRESSION: 1. Elevated 6 hour uptake of 28%. 2. Relatively diminished perfusion in the right upper and mid thyroidlikely corresponding to the 5.6 cm nodule on the ultrasound. Consider biopsy as clinically warranted. THIS IS AN ELECTRONICALLY VERIFIED FINAL REPORT 10/18/2024 4:07 PM - Electronically signed by Torito Fuller M.D. LB T: Report ID: [id number] Reading Location: [id number] us Supraja Gilson Riggins MD IMG NM PROCEDURES F inal Result * US Thyroid (10/18/2024 8:09 AM CDT) Anatomical Region Laterality Modality Head and Neck N/A Ultrasound 10/18/2024 4:07 PM CDT Narrative 10/18/2024 4:13 PM CDT EXAM DESCRIPTION: US THYROID REASON FOR STUDY: Multinodular goiter. TECHNIQUE: Ultrasound of the thyroid was performed with grayscale and color doppler. COMPARISON: None FINDINGS: RIGHT: The right thyroid lobe measures 6.3 x 3.7 x 3.1 cm. In the majority of the right lobe, there is a solid hypoechoic 5.6 x 3.6 x 2.9 cm nodule (TI-RADS 4). There is a solid hypoechoic 0.8 cm nodule in the inferior right thyroid (TI-RADS 4). LEFT: The left thyroid lobe measures 5.6 x 2.4 x 2 cm. There is a solid hypoechoic 1.7 x 1.5 x 1.3 cm nodule in the superior left thyroid (TI-RADS 4). There is solid hypoechoic 1.4 x 1.2 x 0.8 cm nodule in the inferior left thyroid (TI-RADS 4). ISTHMUS: The isthmus measures 0.3 cm in AP dimension. The isthmus is normal in echotexture. VASCULARITY: Normal. OTHER: No other significant finding. IMPRESSION: 1. Solid 5.6 cm right thyroid nodule (TI-RADS 4) meets criteria for biopsy. 2. Solid 1.7 cm nodule in the superior left thyroid (TI-RADS 4) meets criteria for biopsy. 3. Other bilateral TI-RADS 4 nodules do not meet criteria for biopsy at this time. Follow-up as below. ACR TI-RADS Risk Category: 4 REFERENCE: According to the ACR Thyroid Imaging, Reporting and Data System (TI-RADS): White Paper of the ACR TI-RADS Committee Sep, 2016 recommendations regarding the management of thyroid nodules are as follows: 1. TI-RADS 1: Risk of malignancy <2%, no FNA or follow up required. 2. TI-RADS 2: Risk of malignancy <2%, no FNA or follow up required. 3. TI-RADS 3: Risk of malignancy 2%-5%. Nodules 1.5 cm or greater follow up at 1, 3 and 5 years recommended, for nodules 2.5 cm or greater FNA recommended. 4. TI-RADS 4: Risk of malignancy 5%-20% Nodules 1.0 cm or greater follow up at 1, 2, 3 and 5 years recommended, for nodules 1.5 cm or greater FNA recommended 5. TI-RADS 5: Risk of malignancy >20%. Nodules 0.5 cm or greater annual follow up for 5 years recommended, for nodules 1.0 cm or greater FNA recommended. The ACT TI-RADS committee recommends targeting no more than two nodules for FNA. If three or more nodules meet criteria for FNA, the two with the most suspicious appearance based on ACR TI-RADS points should be sampled. THIS IS AN ELECTRONICALLY VERIFIED FINAL REPORT 10/18/2024 4:13 PM - Electronically signed by Torito VERMA T: Report ID: [id number] Reading Location: [place] [address] Procedure Note Torito Fuller MD - 10/18/2024 EXAM DESCRIPTION: US THYROID REASON FOR STUDY: Multinodular goiter. TECHNIQUE: Ultrasound of the thyroid was performed with grayscale andcolor doppler. COMPARISON: None FINDINGS: RIGHT: The right thyroid lobe measures 6.3 x 3.7 x 3.1 cm. In the majority of the right lobe, there is a solid hypoechoic 5.6 x 3.6 x2.9 cm nodule (TI-RADS 4). There is a solid hypoechoic 0.8 cm nodule in the inferior right thyroid (TI-RADS 4). LEFT: The left thyroid lobe measures 5.6 x 2.4 x 2 cm. There is a solid hypoechoic 1.7 x 1.5 x 1.3 cm nodule in the superior left thyroid (TI-RADS 4). There is solid hypoechoic 1.4 x 1.2 x 0.8 cm nodule in the inferior left thyroid (TI-RADS 4). ISTHMUS: The isthmus measures 0.3 cm in AP dimension. The isthmus isnormal in echotexture. VASCULARITY: Normal. OTHER: No other significant finding. IMPRESSION: 1. Solid 5.6 cm right thyroid nodule (TI-RADS 4) meets criteria forbiopsy. 2. Solid 1.7 cm nodule in the superior left thyroid (TI-RADS 4) meets criteria for biopsy. 3. Other bilateral TI-RADS 4 nodules do not meet criteria for biopsy atthis time. Follow-up as below. ACR TI-RADS Risk Category: 4 REFERENCE: According to the ACR Thyroid Imaging, Reporting and Data System (TI-RADS): White Paper of the ACR TI-RADS Committee Sep, 2016recommendations regarding the management of thyroid nodules are as follows: 1. TI-RADS 1: Risk of malignancy <2%, no FNA or follow up required. 2. TI-RADS 2: Risk of malignancy <2%, no FNA or follow up required. 3. TI-RADS 3: Risk of malignancy 2%-5%. Nodules 1.5 cm or greater followup at 1, 3 and 5 years recommended, for nodules 2.5 cm or greater FNArecommended. 4. TI-RADS 4: Risk of malignancy 5%-20% Nodules 1.0 cm or greater followup at 1, 2, 3 and 5 years recommended, for nodules 1.5 cm or greater FNA recommended 5. TI-RADS 5: Risk of malignancy >20%. Nodules 0.5 cm or greater annual follow up for 5 years recommended, for nodules 1.0 cm or greater FNA recommended. The ACT TI-RADS committee recommends targeting no more than two nodulesfor FNA. If three or more nodules meet criteria for FNA, the two with themost suspicious appearance based on ACR TI-RADS points should be sampled. THIS IS AN ELECTRONICALLY VERIFIED FINAL REPORT 10/18/2024 4:13 PM - Electronically signed by Torito Fuller M.D. LB T: Report ID: [id number] Reading Location: [place] [address] us Supraja Gilson Riggins MD IMG US PROCEDURES F inal Result * Screening Mammogram Bilateral W Tae (09/28/2017 7:27 AM CDT) Anatomical Region Laterality Modality Breast Bilateral Mammography 09/28/2017 7:27 AM CDT Impressions 09/30/2017 11:43 AM CDT BI-RAD 1 NEGATIVE There is no mammographic evidence of malignancy. A 1 year screening mammogram is recommended. The patient has been or will be contacted. The patient will be entered into a reminder system with a target due date of 1 year for her next screening exam. Electronically signed by: Dr. Jordan Gauthier M.D. nh/penrad:09/30/2017 11:42:27 Acid Mixer: Denita MONREAL)(M), [facility] letter sent: Normal Exam Reading location: [facility] BI-RADS: 1 Negative [EOD] Narrative 09/30/2017 11:43 AM CDT - MG BILATERAL DIGITAL SCREENING MAMMOGRAM 3D/2D WITH MEDIOLATERAL OBLIQUE CRANIOCAUDAL: 09/28/2017 The study was acquired using full field digital technology and interpreted from soft copy. 2D digital mammographic views, as well as 3D digital tomosynthesis were performed in the CC and MLO projections. CLINICAL: Routine mammogram. Denies any problems today. No personal history of breast cancer. No family history of breast cancer. COMPARISONS: Comparison is made to exams dated: 10/01/2011 mammogram and 10/01/2011 ultrasound - [facility]. BREAST TISSUE: The tissue of both breasts is heterogeneously dense, which may obscure small masses. FINDINGS: No significant masses, calcifications, or other findings are seen in either breast. There has been no significant interval change. Procedure Note Provider, MD Uvaldo - 10/01/2020 - MG BILATERAL DIGITAL SCREENING MAMMOGRAM 3D/2D WITH MEDIOLATERAL OBLIQUE CRANIOCAUDAL: 09/28/2017 The study was acquired using full field digital technology and interpretedfrom soft copy. 2D digital mammographic views, as well as 3D digital tomosynthesis were performed in the CC and MLO projections. CLINICAL: Routine mammogram. Denies any problems today. No personalhistory of breast cancer. No family history of breast cancer. COMPARISONS: Comparison is made to exams dated: 10/01/2011 mammogram and 10/01/2011 ultrasound - [facility]. BREAST TISSUE: The tissue of both breasts is heterogeneously dense, whichmay obscure small masses. FINDINGS: No significant masses, calcifications, or other findings areseen in either breast. There has been no significant interval change. IMPRESSION: BI-RAD 1 NEGATIVE There is no mammographic evidence of malignancy. A 1 year screeningmammogram is recommended. The patient has been or will be contacted. The patient will be entered into a reminder system with a target due dateof 1 year for her next screening exam. Electronically signed by: Dr. Jordan Gauthier M.D. sd/penrad:09/30/2017 11:42:27 Acid Mixer: Denita MONREAL)(M), [facility] letter sent: Normal Exam Reading location: [facility] BI-RADS: 1 Negative [EOD] Lata Quiles MD IMG MAMMO PROCEDURES Final Re sult from Last 3 Months or Most Recently Relevant to Health Maintenance Insurance [facility] Care Teams Dinking Machine Operator Relationship Specialty Start Date End Date Doreen Chapman, BOTTOM POUNDER CEMENT SHOES [facility] [place] [address] PCP - General Internal Medicine 09/18/24 Prieto Salomon MD [address] [place] [address] Family Medicine 09/08/22 Kristen Young NP [address] [place] [address] Nurse Practitioner Nurse Practitioner 07/04/23
--- OUTSIDE RECORDS SUMMARY | 2024-12-27 15:00 | XMS_ITS | Encounter Summary ---
Author Organization [facility] Address [address] [place] [address] Care Team Providers Care Manager Plan Name Role Phone Kristen Young PERSONAL LINES SALES REP Primary Care Provider Doreen Faith PERSONAL LINES SALES REP Primary Care Provider [phone] Encounter Details Date Type Department Care Team (Late Contact Info) Description 05/21/2022 Rysto Message [facility] [address] [place] [address] REPPhart, [facility] Provider Patient Name Change Social History Tobacco Use Types Packs/Day Years [...] Sex Assigned at Female 06/14/2024 12:43 PM PUBLIC HEALTH DENTIST Legal Sex Female 7:55 PM CDT Gender Identity Female 06/14/2024 12:43 PM PUBLIC HEALTH DENTIST Sexual Orientation Straight 06/14/2024 12 :43 PM PUBLIC HEALTH DENTIST documented as of this encounter Plan of Treatment Upcoming Encounters Date Type Department Care Team (Late st Contact Info) Description 01/18/2025 9:40 AM CDT Office Visit [facility] [place] [address] [place] [address] Doreen Chapman, PERSONAL LINES SALES REP [address] [place] [address] documented as of this encounter Visit Diagnoses Not on filedocumented in this encounter Additional Health Concerns Assessment Noted Time PHQ-9 Depression Total Score: 0 03/23/20 8:00 AM PUBLIC HEALTH DENTIST documented as of this encounter Care Teams Manager Plan Relationship Specialty Start Date End Date Kristen Young, PERSONAL LINES SALES REP PCP - General NURSE PRACTITIONER 03/18/22 10/12/23 Doreen Chapman, PERSONAL LINES SALES REP [address] [place] [address] PCP - General NURSE PRACTITIONER 10/13/23 documented as of this encounter
--- OUTSIDE RECORDS SUMMARY | 2024-12-27 15:01 | XMS_ITS | Encounter Summary ---
Author Organization [facility] Address [place] [address] Care Team Providers Care Box Maker Wood Name Role Phone Doreen Chapman GRINDER HAND Primary Care Provider [phone] Encounter Details Date Type Department Care Team (Late st Contact Info) Description 08/09/2024 idio Message Enc [facility] - [place] [address] [place] [address] Doreen Chapman, GRINDER HAND [address] [place] [address] Dr Anderson Social History Tobacco Use Types Packs/Day Years Used Date Smoking Tobacco: Former Cigarettes 1 28 0 05/16/1988 - 05/16/2016 Smokeless Tobacco: Never Alcohol Use Standard Drinks/Week Comments Not Currently [...] Sex Assigned at Female 06/14/2024 12:43 PM CONSTRUCTION QUALITY CONTROL MANAGER Legal Sex Female 7:55 PM CDT Gender Identity Female 06/14/2024 12:43 PM CONSTRUCTION QUALITY CONTROL MANAGER Sexual Orientation Straight 06/14/2024 12 :43 PM CONSTRUCTION QUALITY CONTROL MANAGER documented as of this encounter Plan of Treatment Upcoming Encounters Date Type Department Care Team (Late st Contact Info) Description 01/18/2025 9:40 AM CDT Office Visit [facility] - [place] [address] [place] [address] Doreen Chapman NP [address] [place] [address] documented as of this encounter Visit Diagnoses Not on filedocumented in this encounter Additional Health Concerns Assessment Noted Time PHQ-9 Depression Total Score: 0 03/23/20 22 8:00 AM CONSTRUCTION QUALITY CONTROL MANAGER documented as of this encounter Care Teams Box Maker Wood Relationship Specialty Start Date End Date Doreen Champan NP [address] [place] [address] PCP - General NURSE PRACTITIONER 10/13/23 documented as of this encounter
--- OUTSIDE RECORDS SUMMARY | 2024-12-27 15:01 | XMS_ITS | Encounter Summary ---
Author Organization [facility] Healthcare Address [address] [place] [address] Care Team Providers Care Special Forces Senior Sergeant Name Role Phone Lisa Ordaz MD Primary Care Provider Prieto Salomon MD Unavailable [phone] Kristen Young NP Unavailable [phone] Doreen Chapman NP Primary Care Provider [phone]- [phone] Encounter Details Date Type Department Care Team (Late st Contact Info) Description 09/08/2022 Orders Only [facility] Cardiac Catheterization Lab [address] [place] [address] Demond Pierson MD [address] [place] [address] Social History Tobacco Use Types Packs/Day Years Used Date Smoking Tobacco: Never Assessed Comments Unknown Sex and Gender Information Value Date Recorded Sex Assigned at Not on file Legal Sex Female 5:46 PM FURNACE HAND Gender Identity Not on file Sexual Orientation Not on file documented as of this encounter Plan of Treatment Not on file documented as of this encounter Visit Diagnoses Not on filedocumented in this encounter Care Teams Special Forces Senior Sergeant Relationship Specialty Start Date End Date Lisa Ordaz MD [address] [place] [address] DEPT [place] [address] PCP - General Family Practice 09/08/22 09/17/24 Doreen Chapman NP [address] [facility] [address] [place] [address] PCP - General Internal Medicine 09/18/24 Prieto Salomon MD [address] [place] [address] Family Medicine 09/08/22 Kristen Young, ARIELLE [address] [place] [address] Nurse Practitioner Nurse Practitioner 07/04/23 documented as of this encounter
--- OUTSIDE RECORDS SUMMARY | 2024-12-27 15:01 | XMS_ITS | Encounter Summary ---
Author Organization [facility] Address [address] [place] [address] Care Team Providers Care Breeder Hen Service Technician Name Role Phone Doreen Chapman MEDICAL SECRETARY TEACHER Primary Care Provider [phone] Encounter Details Date Type Department Care Team (Late st Contact Info) Description 02/07/2024 [employer] Message Enc [facility] Medical Group Multispecialty Care - [place] [address] [place] [address] Doreen Chapman, MEDICAL SECRETARY TEACHER [address] [place] [address] Contrave Social History Tobacco Use Types Packs/Day Years [...] Sex Assigned at Female 06/14/2024 12:43 PM VICE PRESIDENT AND PORTFOLIO MANAGER Legal Sex Female 7:55 PM CDT Gender Identity Female 06/14/2024 12:43 PM VICE PRESIDENT AND PORTFOLIO MANAGER Sexual Orientation Straight 06/14/2024 12 :43 PM VICE PRESIDENT AND PORTFOLIO MANAGER documented as of this encounter Plan of Treatment Upcoming Encounters Date Type Department Care Team (Late st Contact Info) Description 01/18/2025 9:40 AM CDT Office Visit [facility] Medical Group Multispecialty Care - [place] [address] [place] [address] Doreen Chapman NP [address] [place] [address] documented as of this encounter Visit Diagnoses Not on filedocumented in this encounter Additional Health Concerns Assessment Noted Time PHQ-9 Depression Total Score: 0 03/23/20 22 8:00 AM VICE PRESIDENT AND PORTFOLIO MANAGER documented as of this encounter Care Teams Breeder Hen Service Technician Relationship Specialty Start Date End Date Doreen Chapman NP [address] [place] [address] PCP - General NURSE PRACTITIONER 10/13/23 documented as of this encounter
--- OUTSIDE RECORDS SUMMARY | 2024-12-27 15:01 | XMS_ITS | Encounter Summary ---
Author Organization [facility] Address [address] [place] [address] Care Team Providers Care Full Service Supervisor Name Role Phone Doreen Chapman TUNNELING MACHINE OPERATOR Primary Care Provider [phone] Encounter Details Date Type Department Care Team (Late st Contact Info) Description 08/29/2024 Yam[employer]et Message Enc [facility] Medical Group Multispecialty Care - [place] [address] [place] [address] Doreen Chapman, TUNNELING MACHINE OPERATOR [address] [place] [address] Magnesium Social History Tobacco Use Types Packs/Day Years [...] Sex Assigned at Female 06/14/2024 12:43 PM TAILOR WOMEN'S GARMENT ALTERATION Legal Sex Female 7:55 PM CDT Gender Identity Female 06/14/2024 12:43 PM TAILOR WOMEN'S GARMENT ALTERATION Sexual Orientation Straight 06/14/2024 12 :43 PM TAILOR WOMEN'S GARMENT ALTERATION documented as of this encounter Plan of Treatment Upcoming Encounters Date Type Department Care Team (Late st Contact Info) Description 01/18/2025 9:40 AM CDT Office Visit [facility] Medical Group Multispecialty Care - [place] [address] [place] [address] Doreen Chapman NP [address] [place] [address] documented as of this encounter Visit Diagnoses Not on filedocumented in this encounter Additional Health Concerns Assessment Noted Time PHQ-9 Depression Total Score: 0 03/23/20 22 8:00 AM TAILOR WOMEN'S GARMENT ALTERATION documented as of this encounter Care Teams Full Service Supervisor Relationship Specialty Start Date End Date Doreen Chapman NP [address] [place] [address] PCP - General NURSE PRACTITIONER 10/13/23 documented as of this encounter
--- OUTSIDE RECORDS SUMMARY | 2024-12-27 15:01 | XMS_ITS | Encounter Summary ---
Author Organization [facility] Address [facility] [place] [address] Care Team Providers Care Dietary Tech Name Role Phone Doreen Chapman ICU STAFF NURSE Primary Care Provider [phone] Encounter Details Date Type Department Care Team (Late st Contact Info) Description 11/21/2024 [employer] Message Enc [facility] Medical Group Multispecialty Care - [place] [address] [place] [address] Doreen Chapman, ICU STAFF NURSE [address] [place] [address] Bumps Social History Tobacco Use Types Packs/Day Years [...] Sex Assigned at Female 06/14/2024 12:43 PM DIRECTOR OF DIGITAL MARKETING Legal Sex Female 7:55 PM CDT Gender Identity Female 06/14/2024 12:43 PM DIRECTOR OF DIGITAL MARKETING Sexual Orientation Straight 06/14/2024 12 :43 PM DIRECTOR OF DIGITAL MARKETING documented as of this encounter Plan of Treatment Upcoming Encounters Date Type Department Care Team (Late st Contact Info) Description 01/18/2025 9:40 AM CDT Office Visit [facility] Medical Group Multispecialty Care - [place] [address] [place] [address] Doreen Chapman NP [address] [place] [address] documented as of this encounter Visit Diagnoses Not on filedocumented in this encounter Additional Health Concerns Assessment Noted Time PHQ-9 Depression Total Score: 0 03/23/20 22 8:00 AM DIRECTOR OF DIGITAL MARKETING documented as of this encounter Care Teams Dietary Tech Relationship Specialty Start Date End Date Doreen Chapman NP [address] [place] [address] PCP - General NURSE PRACTITIONER 10/13/23 documented as of this encounter
--- OUTSIDE RECORDS SUMMARY | 2024-12-27 15:01 | XMS_ITS | Encounter Summary ---
Author Organization [facility] Address [address] [place] [address] Care Team Providers Care Adult Health Clinical Nurse Specialist Name Role Phone Doreen Chapman HTML DEVELOPER Primary Care Provider [phone] Encounter Details Date Type Department Care Team (Late st Contact Info) Description 11/04/2023 [employer] Message Enc [facility] Medical Group Multispecialty Care - [place] [address] [place] [address] Doreen Chapman, HTML DEVELOPER [address] [place] [address] CT results Social History Tobacco Use Types Packs/Day Years [...] Sex Assigned at Female 06/14/2024 12:43 PM TAIL EDGER Legal Sex Female 7:55 PM CDT Gender Identity Female 06/14/2024 12:43 PM TAIL EDGER Sexual Orientation Straight 06/14/2024 12 :43 PM TAIL EDGER documented as of this encounter Plan of Treatment Upcoming Encounters Date Type Department Care Team (Late st Contact Info) Description 01/18/2025 9:40 AM CDT Office Visit [facility] Medical Group Multispecialty Care - [place] [address] [place] [address] oDreen Chapman NP [address] [place] [address] documented as of this encounter Visit Diagnoses Not on filedocumented in this encounter Additional Health Concerns Assessment Noted Time PHQ-9 Depression Total Score: 0 03/23/20 22 8:00 AM TAIL EDGER documented as of this encounter Care Teams Adult Health Clinical Nurse Specialist Relationship Specialty Start Date End Date Doreen Chapman NP [address] [place] [address] PCP - General NURSE PRACTITIONER 10/13/23 documented as of this encounter
--- OUTSIDE RECORDS SUMMARY | 2024-12-27 15:01 | XMS_ITS | Encounter Summary ---
Author Organization [facility] Address [facility] [place] [address] Care Team Providers Care Parts Cleaner Name Role Phone Doreen Chapman CHIEF CUSTOMER OFFICER Primary Care Provider [phone]- [phone] Encounter Details Date Type Department Care Team (Latest Contact Info) Description 11/02/2024 Results Follow-Up [facility] Medical Group Multispecialty Care - [place] [address] [place] [address] Doreen Chapman, CHIEF CUSTOMER OFFICER [address] [facility] [address] [place], [place] [address] LAUREN (EXACT SCIENCE) Social History Tobacco Use Types Packs/Day Years [...] Sex Assigned at Female 06/14/2024 12:43 PM SAND TESTER Legal Sex Female 7:55 PM CDT Gender Identity Female 06/14/2024 12:43 PM SAND TESTER Sexual Orientation Straight 06/14/2024 12 :43 PM SAND TESTER documented as of this encounter Plan of Treatment Upcoming Encounters Date Type Department Care Team (Late st Contact Info) Description 01/18/2025 9:40 AM CDT Office Visit [facility] Medical Group Multispecialty Care - [place] [address] [place] [address] Doreen Chapman, ARIELLE [address] [place] [address] documented as of this encounter Visit Diagnoses Not on filedocumented in this encounter Additional Health Concerns Assessment Noted Time PHQ-9 Depression Total Score: 0 03/23/20 22 8:00 AM SAND TESTER documented as of this encounter Care Teams Parts Cleaner Relationship Specialty Start Date End Date Doreen Chapman NP [address] [place] [address] PCP - General NURSE PRACTITIONER 10/13/23 documented as of this encounter
--- OUTSIDE RECORDS SUMMARY | 2024-12-27 15:01 | XMS_ITS | Encounter Summary ---
Author Organization [facility] Address [facility] [place] [address] Care Team Providers Care Wood Caulker Name Role Phone Doreen Chapman VENEER JOINER Primary Care Provider [phone]- [phone] Encounter Details Date Type Department Care Team (Late st Contact Info) Description 06/19/2024 [employer] Message Enc [facility] Medical Group Multispecialty Care - [place] [address] [place] [address] Doreen Chapman, VENEER JOINER [address] [place] [address] [employer] Social History Tobacco Use Types Packs/Day Years [...] Sex Assigned at Female 06/14/2024 12:43 PM MIG WELDER Legal Sex Female 7:55 PM CDT Gender Identity Female 06/14/2024 12:43 PM MIG WELDER Sexual Orientation Straight 06/14/2024 12 :43 PM MIG WELDER documented as of this encounter Plan of Treatment Upcoming Encounters Date Type Department Care Team (Late st Contact Info) Description 01/18/2025 9:40 AM CDT Office Visit [facility] Medical Group Multispecialty Care - [place] [address] [place] [address] Doreen Chapman NP [address] [place] [address] documented as of this encounter Visit Diagnoses Not on filedocumented in this encounter Additional Health Concerns Assessment Noted Time PHQ-9 Depression Total Score: 0 03/23/20 22 8:00 AM MIG WELDER documented as of this encounter Care Teams Wood Caulker Relationship Specialty Start Date End Date Doreen Chapman NP [address] [place] [address] PCP - General NURSE PRACTITIONER 10/13/23 documented as of this encounter
--- OUTSIDE RECORDS SUMMARY | 2024-12-27 15:01 | XMS_ITS | Encounter Summary ---
Author Organization [facility] Address [facility] [place] [address] Care Team Providers Care Sewer Repairer Name Role Phone Doreen Chapman COPPERSMITH APPRENTICE Primary Care Provider [phone]- [phone] Encounter Details Date Type Department Care Team (Late st Contact Info) Description 07/11/[address] [employer] [address] [facility] Medical Group Multispecialty Care - [place] [address] [place] [address] Doreen Chapman, COPPERSMITH APPRENTICE [address] [place] [address] zepbound Social History Tobacco Use Types Packs/Day Years [...] Sex Assigned at Female 06/14/2024 12:43 PM KNIFE OPERATOR Legal Sex Female 7:55 PM CDT Gender Identity Female 06/14/2024 12:43 PM KNIFE OPERATOR Sexual Orientation Straight 06/14/2024 12 :43 PM KNIFE OPERATOR documented as of this encounter Plan of Treatment Upcoming Encounters Date Type Department Care Team (Late st Contact Info) Description 01/18/2025 9:40 AM CDT Office Visit [facility] Medical Group Multispecialty Care - [place] [address] [place] [address] Doreen Chapman NP [address] [place] [address] documented as of this encounter Visit Diagnoses Not on filedocumented in this encounter Additional Health Concerns Assessment Noted Time PHQ-9 Depression Total Score: 0 03/23/20 22 8:00 AM KNIFE OPERATOR documented as of this encounter Care Teams Sewer Repairer Relationship Specialty Start Date End Date Doreen Chapman NP [address] [place] [address] PCP - General NURSE PRACTITIONER 10/13/23 documented as of this encounter
--- OUTSIDE RECORDS SUMMARY | 2024-12-27 15:01 | XMS_ITS | Encounter Summary ---
Author Organization [facility] Address [address] [place] [address] Care Team Providers Care Customer Experience Analyst Name Role Phone Kristen Young CARE PROGRAM RESIDENT Primary Care Provider Doreen Faith CARE PROGRAM RESIDENT Primary Care Provider [phone] Encounter Details Date Type Department Care Team (Late st Contact Info) Description 09/07/2023 [employer] Message Enc [facility] Medical Group Family Medicine [address] [address] [place], [facility] Provider Phentermine Social History Tobacco Use Types Packs/Day Years [...] Sex Assigned at Female 06/14/2024 12:43 PM HYDROGEN POWER PLANT MANAGER Legal Sex Female 7:55 PM CDT Gender Identity Female 06/14/2024 12:43 PM HYDROGEN POWER PLANT MANAGER Sexual Orientation Straight 06/14/2024 12 :43 PM HYDROGEN POWER PLANT MANAGER documented as of this encounter Plan of Treatment Upcoming Encounters Date Type Department Care Team (Late st Contact Info) Description 01/18/2025 9:40 AM CDT Office Visit [facility] Medical Group Multispecialty Care - [place] [address] [place] [address] Doreen Chapman, CARE PROGRAM RESIDENT [address] [facility] [address] [place] [address] documented as of this encounter Visit Diagnoses Not on filedocumented in this encounter Additional Health Concerns Assessment Noted Time PHQ-9 Depression Total Score: 0 03/23/20 22 8:00 AM HYDROGEN POWER PLANT MANAGER documented as of this encounter Care Teams Customer Experience Analyst Relationship Specialty Start Date End Date Kristen Young, CARE PROGRAM RESIDENT PCP - General NURSE PRACTITIONER 03/18/22 10/12/23 Doreen Chapman, CARE PROGRAM RESIDENT [address] [place] [address] PCP - General NURSE PRACTITIONER 10/13/23 documented as of this encounter
--- OUTSIDE RECORDS SUMMARY | 2024-12-27 15:01 | XMS_ITS | Encounter Summary ---
Author Organization [facility] Address [address] [place] [address] Care Team Providers Care Wax Cutter Name Role Phone Doreen Chapman BENDING ROLL HAND Primary Care Provider [phone] Encounter Details Date Type Department Care Team (Late st Contact Info) Description 10/17/2023 [employer] Message Enc [facility] Medical Group Multispecialty Care - [place] [address] [place] [address] Doreen Chapman, BENDING ROLL HAND [address] [place] [address] Platelets Social History Tobacco Use Types Packs/Day Years [...] Sex Assigned at Female 06/14/2024 12:43 PM OPTOMETRIC COORDINATOR Legal Sex Female 7:55 PM CDT Gender Identity Female 06/14/2024 12:43 PM OPTOMETRIC COORDINATOR Sexual Orientation Straight 06/14/2024 12 :43 PM OPTOMETRIC COORDINATOR documented as of this encounter Plan of Treatment Upcoming Encounters Date Type Department Care Team (Late st Contact Info) Description 01/18/2025 9:40 AM CDT Office Visit [facility] Medical Group Multispecialty Care - [place] [address] [place] [address] Doreen Chapman NP [address] [place] [address] documented as of this encounter Visit Diagnoses Not on filedocumented in this encounter Additional Health Concerns Assessment Noted Time PHQ-9 Depression Total Score: 0 03/23/20 22 8:00 AM OPTOMETRIC COORDINATOR documented as of this encounter Care Teams Wax Cutter Relationship Specialty Start Date End Date Doreen Chapman NP [address] [place] [address] PCP - General NURSE PRACTITIONER 10/13/23 documented as of this encounter
--- OUTSIDE RECORDS SUMMARY | 2024-12-27 15:01 | XMS_ITS | Encounter Summary ---
Author Organization [facility] Address [address] [place] [address] Care Team Providers Care Mechanic Helper Name Role Phone Doreen Chapman ORDER CHECKER PACKER PROCESSER Primary Care Provider [phone] Encounter Details Date Type Department Care Team (Late st Contact Info) Description 10/12/2024 Remitlyt Message Enc [facility] Medical Group Multispecialty Care - [place] [address] [place] [address] Doreen Chapman, ORDER CHECKER PACKER PROCESSER [address] [place] [address] Hormone Testing Social History Tobacco Use Types Packs/Day Years [...] Sex Assigned at Female 06/14/2024 12:43 PM OPERATIONAL RISK CONSULTANT Legal Sex Female 7:55 PM CDT Gender Identity Female 06/14/2024 12:43 PM OPERATIONAL RISK CONSULTANT Sexual Orientation Straight 06/14/2024 12 :43 PM OPERATIONAL RISK CONSULTANT documented as of this encounter Plan of Treatment Upcoming Encounters Date Type Department Care Team (Late st Contact Info) Description 01/18/2025 9:40 AM CDT Office Visit [facility] Medical Group Multispecialty Care - [place] [address] [place] [address] Doreen Chapman NP [address] [place] [address] documented as of this encounter Visit Diagnoses Not on filedocumented in this encounter Additional Health Concerns Assessment Noted Time PHQ-9 Depression Total Score: 0 03/23/20 22 8:00 AM OPERATIONAL RISK CONSULTANT documented as of this encounter Care Teams Mechanic Helper Relationship Specialty Start Date End Date Doreen Chapman NP [address] [place] [address] PCP - General NURSE PRACTITIONER 10/13/23 documented as of this encounter
--- OUTSIDE RECORDS SUMMARY | 2024-12-27 15:01 | XMS_ITS | Encounter Summary ---
Author Organization [facility] Address [address] [place] [address] Care Team Providers Care Pitch Flaker Name Role Phone Prieto Salomon MD Primary Care Provider [phone] Sylvia Neil MD Primary Care Provider [phone] Kristen Young DRAFTER CARTOGRAPHIC Primary Care Provider Radha Doreen Quezada DRAFTER CARTOGRAPHIC Primary Care Provider [phone] Encounter Details Date Type Department Care Team (Late st Contact Info) Description 09/17/2021 Envia Lá Message [facility] Patient Accounts [address] [place], [place] [id number] [employer], [facility] Provider Financial Assistance application Social History Tobacco Use Types Packs/Day Years [...] of Binge Drinking Not on file 02/14 Comments No Sex and Gender Information Value Date Recorded Sex Assigned at Female 06/14/2024 12:43 PM TOURISM RADIO PRESENTER Legal Sex Female 7:55 PM CDT Gender Identity Female 06/14/2024 12:43 PM TOURISM RADIO PRESENTER Sexual Orientation Straight 06/14/2024 12 :43 PM TOURISM RADIO PRESENTER COVID-19 Exposure Response Date Recorded In the last 10 days, have yo u been in contact with someone who was confirmed or suspected to have Coronavirus/COVID-19? No / Unsure 09/08/2021 8:20 AM CDT documented as of this encounter Plan of Treatment Upcoming Encounters Date Type Department Care Team (Late st Contact Info) Description 01/18/2025 9:40 AM CDT Office Visit [facility] Medical Group Multispecialty Care - [place] [address] [place] [address] Doreen Chapman, ARIELLE [address] [place] [address] documented as of this encounter Visit Diagnoses Not on filedocumented in this encounter Care Teams Pitch Flaker Relationship Specialty Start Date End Date Prieto Salomon MD PCP - General FAMILY PRACTICE 02/29/20 02/28/22 Sylvia Neil MD [address] [place] [address] PCP - General FAMILY PRACTICE 03/01/22 03/17/22 Kristen Young NP [address] [place] [address] PCP - General NURSE PRACTITIONER 03/18/22 10/12/23 Doreen Chapman, ARIELLE [address] [place] [address] PCP - General NURSE PRACTITIONER 10/13/23 documented as of this encounter
--- OUTSIDE RECORDS SUMMARY | 2024-12-27 15:01 | XMS_ITS | Encounter Summary ---
Author Organization [facility] Address [address] [place] [address] Care Team Providers Care Consumer Loan Manager Name Role Phone Doreen Chapman MANAGER STERILE PROCESSING Primary Care Provider [phone] Encounter Details Date Type Department Care Team (Late st Contact Info) Description 08/14/2024 [employer] Message Enc [facility] Medical Group Multispecialty Care - [place] [address] [place] [address] Doreen Chapman, MANAGER STERILE PROCESSING [address] [place] [address] Blood work Social History Tobacco Use Types Packs/Day Years [...] Sex Assigned at Female 06/14/2024 12:43 PM AIRFRAME AND POWERPLANT MECHANIC Legal Sex Female 7:55 PM CDT Gender Identity Female 06/14/2024 12:43 PM AIRFRAME AND POWERPLANT MECHANIC Sexual Orientation Straight 06/14/2024 12 :43 PM AIRFRAME AND POWERPLANT MECHANIC documented as of this encounter Plan of Treatment Upcoming Encounters Date Type Department Care Team (Late st Contact Info) Description 01/18/2025 9:40 AM CDT Office Visit [facility] Medical Group Multispecialty Care - [place] [address] [place] [address] Doreen Chapman NP [address] [place] [address] documented as of this encounter Visit Diagnoses Not on filedocumented in this encounter Additional Health Concerns Assessment Noted Time PHQ-9 Depression Total Score: 0 03/23/20 22 8:00 AM AIRFRAME AND POWERPLANT MECHANIC documented as of this encounter Care Teams Consumer Loan Manager Relationship Specialty Start Date End Date Doreen Chapman NP [address] [place] [address] PCP - General NURSE PRACTITIONER 10/13/23 documented as of this encounter
--- OUTSIDE RECORDS SUMMARY | 2024-12-27 15:01 | XMS_ITS | Encounter Summary ---
Author Organization [facility] Address [address] [place] [id number] Care Team Providers Care Spray Painting Machine Operator Name Role Phone Kristen Young SOLID TIRE FINISHER Primary Care Provider Doreen Faith SOLID TIRE FINISHER Primary Care Provider [phone] Encounter Details Date Type Department Care Team (Late st Contact Info) Description 09/01/2023 [employer] Message Enc [facility] Medical [facility] Family Medicine [address] [id number] [place], [facility] Provider Contrave Social History Tobacco Use Types Packs/Day [...] Sex Assigned at Female 06/14/2024 12:43 PM CLINIC PHYSICIAN DIRECTOR Legal Sex Female 7:55 PM CDT Gender Identity Female 06/14/2024 12:43 PM CLINIC PHYSICIAN DIRECTOR Sexual Orientation Straight 06/14/2024 12 :43 PM CLINIC PHYSICIAN DIRECTOR documented as of this encounter Plan of Treatment Upcoming Encounters Date Type Department Care Team (Late st Contact Info) Description 01/18/2025 9:40 AM CDT Office Visit [facility] [place] [address] [place] [address] Doreen Chapman, SOLID TIRE FINISHER [address] [facility] [address] [place] [address] documented as of this encounter Visit Diagnoses Not on filedocumented in this encounter Additional Health Concerns Assessment Noted Time PHQ-9 Depression Total Score: 0 03/23/20 22 8:00 AM CLINIC PHYSICIAN DIRECTOR documented as of this encounter Care Teams Spray Painting Machine Operator Relationship Specialty Start Date End Date Kristen Young, SOLID TIRE FINISHER PCP - General NURSE PRACTITIONER 03/18/22 10/12/23 Doreen Chapman, SOLID TIRE FINISHER [address] [place] [address] PCP - General NURSE PRACTITIONER 10/13/23 documented as of this encounter
== END 2024-12-27 14:57 | disposition home or self-care (01) ==
LOC: CHSIMG 14:58
PROVIDERS: PCP Nurse Practitioner; Visit Provider Advanced Practice Midwife
DX: Z12.31 Encounter for screening mammogram for malignant neoplasm of breast (principal); Z12.2 Encounter for screening for malignant neoplasm of respiratory organs; Z87.891 Personal history of nicotine dependence
CPT/HCPCS: 71271; 77063; 77067